=== PATIENT | male | born 1960 | race Caucasian/White ===

== ENCOUNTER 2021-03-24 15:06 | Emergency (ER) | payer OTHER ==
[~2021-03-24] VITALS: Ht 172.7 cm; Wt 90.0 kg
[2021-03-24] MEDS ORDERED: DEXTROSE 50% 25 GM / 50ML DISP.SYRIN. IV ONE (15:13)
[2021-03-24 15:35] LABS: BASO # 0.1 x10^3/uL (0.0-0.2); BASO % 1 % (0-3); EOS # 0.2 x10^3/uL (0.0-0.7); EOS % 2 % (0-3); HEMOGLOBIN 14.6 g/dL (13.0-17.5); LYMPH # 1.9 x10^3/uL (1.0-4.8); LYMPH % 19 % (24-48); MEAN CORPUSCULAR HEMOGLOBIN 29 pg (25-35); MEAN CORPUSCULAR HGB CONC 34 g/dL (31-37); MEAN CORPUSCULAR VOLUME 87 fL (79-100); MONO # 1.1 x10^3/uL (0.0-1.1); MONO % 11 % (0-9); NEUT # 7.1 x10^3uL (1.8-7.7); NEUT % 68 % (31-73); PLATELET COUNT 257 x10^3/uL (140-400); RED BLOOD COUNT 4.97 x10^6/uL (4.30-5.70); RED CELL DISTRIBUTION WIDTH 13.6 % (11.5-14.5); WHITE BLOOD COUNT 10.4 x10^3/uL (4.0-11.0)
[2021-03-24] MEDS: DEXTROSE 50% 25 GM / 50ML DISP.SYRIN. IV ONE (15:52)
[2021-03-24 15:56] LABS: ALBUMIN 4.3 g/dL (3.4-5.0); ALBUMIN/GLOBULIN RATIO 1.1 (1.0-1.7); CREATININE 0.8 mg/dL (0.7-1.3); GFR 98.6; MAGNESIUM 2.1 mg/dL (1.8-2.4); POTASSIUM 3.2 mmol/L (3.5-5.1); TOTAL BILIRUBIN 0.5 mg/dL (0.2-1.0); TOTAL PROTEIN 8.1 g/dL (6.4-8.2)
[2021-03-24 16:10] VITALS: BP 137/90
[2021-03-24] MEDS ORDERED: POTASSIUM CHLORIDE 20 MEQ TABLET.ER. PO ONE (16:30)
--- NOTE | 2021-03-24 16:54 | PHYS DOC ---
Past History Past Medical History: Diabetes Past Medical History Limited secondary to altered mental status Past Surgical History: Appendectomy, Knee Replacement, Tonsillectomy Additional Past Surgical Histo: hernia repair. Past Surgical History Limited secondary to altered mental status Alcohol Use: Rarely Social History Limited secondary to altered mental status General Adult EDM: Chief Complaint: HYPOGLYCEMIA HPI: HPI: Patient is a [age] year old [sex] who presents with [] History of present illness limited secondary to altered mental status Review of Systems: Review of Systems: Review of systems limited secondary to altered mental status. Current Medications: Current Meds: Current Medications Medications (Trade) Dose Ordered Sig/Adeel Start Time Stop Time Status Last Admin Dose Admin Dextrose (Dextrose 50%-Water Syringe) 25 gm STK-MED ONCE 03/24/21 15:13 03/24/21 15:13 DC Potassium Chloride (Klor-Con) 40 meq 1X ONCE 03/24/21 16:30 03/24/21 16:31 DC Allergies: Allergies: Allergies Coded Allergies Type Severity Reaction Last Updated Verified [id number] Reductase Inhibitor Allergy Mild muscle pain 03/24/21 Yes Physical Exam: PE: Constitutional: Well developed, well nourished, no acute distress, non-toxic appearance HENT: Normocephalic, atraumatic Eyes: PERRL, EOMI, conjunctiva normal, no discharge Neck: Normal range of motion, no tenderness, supple Lungs & Thorax: No respiratory distress, equal chest rise and fall Abdomen: Soft, no tenderness Skin: Warm, dry, no erythema, no rash Back: No tenderness, no CVA tenderness Extremities: No tenderness, ROM intact, no edema Neurologic: Alert and oriented X 3, normal motor function, normal sensory function, no focal deficits noted Psychologic: Affect normal, judgment normal Current Patient Data: Labs: Laboratory Tests Test 03/24/21 15:11 03/24/21 15:15 03/24/21 15:19 Glucose (Fingerstick) 22 mg/dL (70-99) *L 145 mg/dL (70-99) H White Blood Count 10.4 x10^3/uL (4.0-11.0) Red Blood Count 4.97 x10^6/uL (4.30-5.70) Hemoglobin 14.6 g/dL (13.0-17.5) Hematocrit 43.0 % (39.0-53.0) Mean Corpuscular Volume 87 fL (79-100) Mean Corpuscular Hemoglobin 29 pg (25-35) Mean Corpuscular Hemoglobin Concent 34 g/dL (31-37) Red Cell Distribution Width 13.6 % (11.5-14.5) Platelet Count 257 x10^3/uL (140-400) Neutrophils (%) (Auto) 68 % (31-73) Lymphocytes (%) (Auto) 19 % (24-48) L Monocytes (%) (Auto) 11 % (0-9) H Eosinophils (%) (Auto) 2 % (0-3) Basophils (%) (Auto) 1 % (0-3) Neutrophils # (Auto) 7.1 x10^3uL (1.8-7.7) Lymphocytes # (Auto) 1.9 x10^3/uL (1.0-4.8) Monocytes # (Auto) 1.1 x10^3/uL (0.0-1.1) Eosinophils # (Auto) 0.2 x10^3/uL (0.0-0.7) Basophils # (Auto) 0.1 x10^3/uL (0.0-0.2) Sodium Level 141 mmol/L (136-145) Potassium Level 3.2 mmol/L (3.5-5.1) L Chloride Level 103 mmol/L (98-107) Carbon Dioxide Level 28 mmol/L (21-32) Anion Gap 10 (6-14) Blood Urea Nitrogen 12 mg/dL (8-26) Creatinine 0.8 mg/dL (0.7-1.3) Estimated GFR (Cockcroft-Gault) 98.6 BUN/Creatinine Ratio 15 (6-20) Glucose Level 31 mg/dL (70-99) *L Calcium Level 9.0 mg/dL (8.5-10.1) Magnesium Level 2.1 mg/dL (1.8-2.4) Total Bilirubin 0.5 mg/dL (0.2-1.0) Aspartate Amino Transferase (AST) 36 U/L (15-37) Alanine Aminotransferase (ALT) 43 U/L (16-63) Alkaline Phosphatase 75 U/L (46-116) Creatine Kinase 229 U/L (39-308) Creatine Kinase MB (Mass) 4.2 ng/mL (0.0-3.6) H Creatine Kinase MB Relative Index 1.8 % (0-4) Troponin I Quantitative < 0.017 ng/mL (0-0.055) Total Protein 8.1 g/dL (6.4-8.2) Albumin 4.3 g/dL (3.4-5.0) Albumin/Globulin Ratio 1.1 (1.0-1.7) Vital Signs: Vital Signs Date Time Temp Pulse Resp B/P (MAP) Pulse Ox O2 Delivery O2 Flow Rate FiO2 03/24/21 15:06 96.9 77 18 140/76 (97) 99 EKG: EKG: @1606 NSR at 71bpm, NO ST elevation, QRS 86ms, QT/QTc 370/402ms Radiology/Procedures: Radiology/Procedures: [] Heart Score: C/O Chest Pain: N/A Course & Med Decision Making: Course & Med Decision Making Pertinent Labs and Imaging studies reviewed. (See chart for details) Patient stable for discharge with outpatient follow-up with PCP. Discussed findings and plan with patient and family, who acknowledge understanding and agreement. Shantel Disclaimer: Shantel Disclaimer: This electronic medical record was generated, in whole or in part, using a voice recognition dictation system. Departure Departure: Impression: Primary Impression: Hypoglycemia Disposition: 01 HOME / SELF CARE / HOMELESS Condition: STABLE Referrals: PCP,JOANNA (PCP) Patient Instructions: Hypoglycemia, [id number] ISABEL RAMAN DO Mar 24, 2021 16:54
--- NOTE | 2021-03-25 06:26 | EKG ---
[address] [address] Test Date: 2021-03-24 Test Time: 16:06:28 Pat Name: MEG CASEY Department: Room: Gender: M English And Reading Instructor: : 1960 Requested By: ISABEL RAMAN Order Number: [id number] Reading MD: Measurements Intervals [place] Rate: P: [place]: QRS: QRSD: T: QT: QTc: Interpretive Statements
== END 2021-03-24 16:55 | disposition home or self-care (01) ==
LOC: ER 15:06
DX: E11.649 Type 2 diabetes mellitus with hypoglycemia without coma (principal); Z88.8 Allergy status to other drugs, medicaments and biological substances
CPT/HCPCS: 36415; 80053; 82553; 82947; 83735; 84484; 85025; 93005; 96374; 99284